=== PATIENT | male | born 1985 | race African-American/Black ===

== ENCOUNTER 2025-03-13 20:49 | Emergency (ER) | payer SELFPAY ==
[~2025-03-13] VITALS: Ht 175.3 cm; Wt 87.0 kg
[2025-03-13 20:52] VITALS: O2SAT 100
[2025-03-13 22:31] LABS: BASOPHILS % 0.2 % (0.0-2.0); EOSINOPHILS % 1.4 % (0.0-5.0); HEMATOCRIT. 43.5 % (42.0-52.0); HEMOGLOBIN. 15.3 g/dL (14.0-18.0); LYMPHOCYTES % 33.5 % (20.0-50.0); MEAN CORPUSCULAR HEMOGLOBIN 30.3 pg (28.0-32.0); MEAN CORPUSCULAR HGB CONC 35.2 g/dL (31.0-37.0); MEAN CORPUSCULAR VOLUME 86.1 fL (80.0-94.0); MONOCYTES % 5.4 % (2.0-8.0); NEUTROPHILS % 59.5 % (40.0-76.0); PLATELET 258 x1000/uL (130-400); RED BLOOD CELL COUNT 5.05 mill/uL (4.7-6.1); WHITE BLOOD COUNT 9.6 x1000/uL (4.5-11.0)
[2025-03-13 22:32] LABS: CHLORIDE 102 mEq/L (98-107); SODIUM 138 mEq/L (136-145)
[2025-03-13 22:33] LABS: CALCIUM 9.3 mg/dL (8.7-10.4); CARBON DIOXIDE 22 mEq/L (21-32)
[2025-03-13 22:38] LABS: CREATININE 1.3 mg/dL (0.6-1.3); GLUCOSE 119 mg/dL (70-105); UREA NITROGEN BLOOD 8 mg/dL (9-23)
[2025-03-13 22:48] LABS: TROPONIN I HIGH SENSITIVITY < 4 ng/L (3.0-53)
[2025-03-14 00:31] LABS: PROTHROMBIN TIME 10.9 sec (9.6-11.0)
[2025-03-14 01:01] VITALS: BP 136/65; PULSE 89; RESP 14; TEMP 36.6; O2SAT 97
== END 2025-03-14 01:14 | disposition home or self-care (01) ==
LOC: ER 20:49
DX: R55 Syncope and collapse (principal); Z88.0 Allergy status to penicillin; Z79.899 Other long term (current) drug therapy
CPT/HCPCS: 36415; 71045; 80048; 83880; 84484; 85025; 93005; 99285